=== PATIENT | male | born 1955 | race American Indian/Alaskan Native ===

== ENCOUNTER 2019-11-22 11:00 | Emergency (ER) | payer SELFPAY ==
--- NOTE | 2019-11-22 11:56 | Event Note ---
ED Screening Note Date of service: 11/22/19 Time: 11:56 ED Screening Note: 64 y/o male comes in for SOB and cough for 1 week. Patient denies any fever. This initial assessment/diagnostic orders/clinical plan/treatment(s) is/are subject to change based on patients health status, clinical progression and re- assessment by fellow clinical providers in the ED. Further treatment and workup at subsequent clinical providers discretion. Patient/guardian urged not to elope from the ED as their condition may be serious if not clinically assessed and managed. Initial orders include: Ox is 90-93 on RA ordered oxygen 2 liter and reevaluate, Rapid flu, cxr, cbc, cmp
--- NOTE | 2019-11-22 12:22 | XRay Report ---
CHEST 2 VIEWS INDICATION / CLINICAL INFORMATION: sob and cough. COMPARISON: None available. FINDINGS: SUPPORT DEVICES: None. HEART / MEDIASTINUM: Heart is upper normal size. Thoracic aorta is mildly ectatic and tortuous. LUNGS / PLEURA: Minimal streaky density at the posterior left lung base could represent atelectasis o r very early infiltrate. No pneumothorax. ADDITIONAL FINDINGS: No significant additional findings. IMPRESSION: 1. Streaky density at the posterior left lung base representing atelectasis or very early infiltrate. Signer Name: Vi Blackmon MD Signed: 11/22/2019 12:18 PM Workstation Name: [id number]
[2019-11-22 13:18] LABS: Basophils % (Auto) 0.7 % (0.0-1.8); Eosinophils # (Auto) 0.2 K/mm3 (0.0-0.4); Eosinophils % (Auto) 3.7 % (0.0-4.3); Hematocrit 42.4 % (35.5-45.6); Hemoglobin 14.6 gm/dl (11.8-15.2); Lymphocytes # (Auto) 0.9 K/mm3 (1.2-5.4); Lymphocytes % (Auto) 17.5 % (13.4-35.0); Mean Corpuscular HGB Conc 35 % (32-34); Mean Corpuscular Volume 96 fl (84-94); Monocytes # (Auto) 0.7 K/mm3 (0.0-0.8); Monocytes % (Auto) 13.5 % (0.0-7.3); Platelet Count 213 K/mm3 (140-440); Red Cell Distribution Width 12.2 % (13.2-15.2)
[2019-11-22 13:39] LABS: Alanine Aminotransferase 10 units/L (7-56); Albumin 3.9 g/dL (3.9-5); BUN/Creatinine Ratio 11; Blood Urea Nitrogen 11 mg/dL (9-20); Hemolysis Index 3
[2019-11-22] MEDS ORDERED: ALBUTEROL 2.5 MG/3 ML NEBU IH ONE (15:34)
[2019-11-22] MEDS ORDERED: dexAMETHasone 20 MG/5 ML VIAL IV ONE (15:34)
[2019-11-22] MEDS ORDERED: MAGNESIUM SULFATE 2 GM/50 ML BAG IV ONE (15:34)
--- NOTE | 2019-11-22 16:54 | Emergency Department Report ---
ED General Adult HPI - General Chief complaint: Upper Respiratory Infection Stated complaint: SOB Time Seen by Provider: 11/22/19 11:53 Source: patient Mode of arrival: Ambulatory Limitations: No Limitations - History of Present Illness Initial comments: Patient is a 64-year-old male who presents with shortness of breath and slight wheezing that started today. Patient states wheezing is moderate nothing makes it better nothing makes it worse. Patient denies having any chest pain he denies being around anyone is been sick he has no fever he says this occasionally occurs. Patient symptoms are moderate Severity scale (0 -10): 0 - Related Data Previous Rx's Medication Instructions Recorded Last Taken Type Albuterol INH(or & Nicu Only) 1 puff IH Q6H PRN #8.5 gram 11/22/19 Unknown Rx [ProAir HFA Inhaler] Azithromycin [Zithromax TAB] 500 mg PO QDAY #6 tablet 11/22/19 Unknown Rx predniSONE [Deltasone] 20 mg PO QDAY #10 tab 11/22/19 Unknown Rx Allergies Allergy/AdvReac Type Severity Reaction Status Date / Time No Known Allergies Allergy Unverified 11/22/19 11:02 ED Review of Systems ROS: Stated complaint: SOB Other details as noted in HPI Constitutional: denies: chills, fever Eyes: denies: eye pain, eye discharge, vision change ENT: denies: ear pain, throat pain Respiratory: cough, shortness of breath. denies: wheezing Cardiovascular: denies: chest pain, palpitations Endocrine: no symptoms reported Gastrointestinal: denies: abdominal pain, nausea, diarrhea Genitourinary: denies: urgency, dysuria Musculoskeletal: denies: back pain, joint swelling, arthralgia Skin: denies: rash, lesions Neurological: denies: headache, weakness, paresthesias Psychiatric: denies: anxiety, depression Hematological/Lymphatic: denies: easy bleeding, easy bruising ED Past Medical Hx - Past Medical History Previous Medical History?: No - Surgical History Past Surgical History?: No - Social History Smoking Status: Never Smoker Substance Use Type: None - Medications Home Medications: Home Medications Medication Instructions Recorded Confirmed Last Taken Type Albuterol INH(or & Nicu Only) 1 puff IH Q6H PRN #8.5 gram 11/22/19 Unknown Rx [ProAir HFA Inhaler] Azithromycin [Zithromax TAB] 500 mg PO QDAY #6 tablet 11/22/19 Unknown Rx predniSONE [Deltasone] 20 mg PO QDAY #10 tab 11/22/19 Unknown Rx ED Physical Exam - General Limitations: No Limitations General appearance: alert, in no apparent distress - Head Head exam: Present: atraumatic, normocephalic - Eye Eye exam: Present: normal appearance - ENT ENT exam: Present: mucous membranes moist - Neck Neck exam: Present: normal inspection - Respiratory Respiratory exam: Present: wheezes. Absent: respiratory distress - Cardiovascular Cardiovascular Exam: Present: regular rate, normal rhythm. Absent: systolic murmur, diastolic murmur, rubs, gallop - GI/Abdominal GI/Abdominal exam: Present: soft, normal bowel sounds - Rectal Rectal exam: Present: deferred - Extremities Exam Extremities exam: Present: normal inspection - Back Exam Back exam: Present: normal inspection - Neurological Exam Neurological exam: Present: alert, oriented X3 - Psychiatric Psychiatric exam: Present: normal affect, normal mood - Skin Skin exam: Present: warm, dry, intact, normal color. Absent: rash ED Course Vital Signs 11/22/19 11/22/19 11/22/19 11:10 11:50 15:08 Temperature 97.6 F Pulse Rate 83 78 Respiratory 18 16 19 Rate Blood Pressure 155/117 156/113 Blood Pressure [Left] O2 Sat by Pulse 93 91 Oximetry 11/22/19 11/22/19 11/22/19 15:10 15:12 15:16 Temperature Pulse Rate 81 Respiratory 24 13 Rate Blood Pressure 149/128 Blood Pressure 142/110 [Left] O2 Sat by Pulse 95 95 94 Oximetry 11/22/19 11/22/19 11/22/19 15:30 15:46 16:00 Temperature Pulse Rate 76 77 77 Respiratory 19 18 20 Rate Blood Pressure 149/128 149/128 149/128 Blood Pressure [Left] O2 Sat by Pulse 93 93 94 Oximetry 11/22/19 16:16 Temperature Pulse Rate 86 Respiratory 9 L Rate Blood Pressure 149/128 Blood Pressure [Left] O2 Sat by Pulse 99 Oximetry ED Medical Decision Making - Lab Data Result diagrams: 11/22/19 12:47 11/22/19 12:47 Lab Results 11/22/19 11/22/19 11/22/19 Range/Units 11:54 12:47 12:47 WBC 5.1 (4.5-11.0) K/mm3 RBC 4.40 (3.65-5.03) M/mm3 Hgb 14.6 (11.8-15.2) gm/dl Hct 42.4 (35.5-45.6) % MCV 96 H (84-94) fl MCH 33 H (28-32) pg MCHC 35 H (32-34) % RDW 12.2 L (13.2-15.2) % Plt Count 213 (140-440) K/mm3 Lymph % (Auto) 17.5 (13.4-35.0) % Guthrie % (Auto) 13.5 H (0.0-7.3) % Eos % (Auto) 3.7 (0.0-4.3) % Baso % (Auto) 0.7 (0.0-1.8) % Lymph # 0.9 L (1.2-5.4) K/mm3 Guthrie # 0.7 (0.0-0.8) K/mm3 Eos # 0.2 (0.0-0.4) K/mm3 Baso # 0.0 (0.0-0.1) K/mm3 Seg Neutrophils % 64.6 (40.0-70.0) % Seg Neutrophils # 3.3 (1.8-7.7) K/mm3 Sodium 137 (137-145) mmol/L Potassium 4.0 (3.6-5.0) mmol/L Chloride 98.6 (98-107) mmol/L Carbon Dioxide 24 (22-30) mmol/L Anion Gap 18 mmol/L BUN 11 (9-20) mg/dL Creatinine 1.0 (0.8-1.5) mg/dL Estimated GFR > 60 ml/min BUN/Creatinine Ratio 11 % Glucose 85 (75-100) mg/dL Calcium 9.0 (8.4-10.2) mg/dL Total Bilirubin 0.50 (0.1-1.2) mg/dL AST 18 (5-40) units/L ALT 10 (7-56) units/L Alkaline Phosphatase 69 (35-129) units/L Total Protein 8.4 H (6.3-8.2) g/dL Albumin 3.9 (3.9-5) g/dL Albumin/Globulin Ratio 0.9 % Influenza A (Rapid) Negative (Negative) Influenza B (Rapid) Negative (Negative) - Radiology Data Radiology results: report reviewed, image reviewed Chest x-ray: Shows lower left infiltrate may be atelectasis versus early pneumonia - Medical Decision Making CDx:PNA Ddx: Bronchitis, Influenza I will get cxr, breathing treatment, steroids and antibiotics Patient is feeling better I will discharge patient home with antibiotics and breathing treatment Critical care attestation.: If time is entered above; I have spent that time in minutes in the direct care of this critically ill patient, excluding procedure time. ED Disposition Clinical Impression: Bronchitis Disposition: DC-01 TO HOME OR SELFCARE Is pt being admited?: No Does the pt Need Aspirin: No Condition: Stable Instructions: Chronic Bronchitis (ED) Prescriptions: predniSONE [Deltasone] 20 mg PO QDAY #10 tab Albuterol INH(or & Nicu Only) [ProAir HFA Inhaler] 1 puff IH Q6H PRN #8.5 gram PRN Reason: Wheezing Azithromycin [Zithromax TAB] 500 mg PO QDAY #6 tablet Referrals: PRIMARY MD KWASI [Primary Care Provider] - 3-5 Days SUSHMA OSUNA MD [Staff Physician] - 3-5 Days
[2019-11-22 17:33] VITALS: BP 140/80
== END 2019-11-22 17:20 | disposition home or self-care (01) ==
LOC: ED 11:00
DX: J40 Bronchitis, not specified as acute or chronic (principal); Z79.899 Other long term (current) drug therapy
CPT/HCPCS: 36415; 71046; 80053; 85025; 87400; 94640; 96374; 99284; J1100; J3475

== ENCOUNTER 2019-12-03 14:48 | Emergency (ER) | payer SELFPAY ==
[2019-12-03 15:06] VITALS: BP 150/111
--- NOTE | 2019-12-03 15:20 | Emergency Department Report ---
Chief Complaint: Earache Stated Complaint: RT EAR CLOGGED Time Seen by Provider: 12/03/19 15:14 - HPI History of Present Illness: 64-year-old -[place] male presents to the emergency room for right ear feels like it is clogged x3 days. Patient denies any fever no chills denies any drainage from the ear denies being under water. Patient does admit to have a recent hospital visit where he had pneumonia. Patient reports he is just completed his antibiotics. Patient denies any shortness of breath or chest pain - Exam Vital Signs: Vital Signs 12/03/19 15:02 Temperature 97.8 F Pulse Rate 89 Respiratory 18 Rate Blood Pressure 150/111 O2 Sat by Pulse 95 Oximetry Physical Exam: Alert and oriented x3 no acute distress HEENT right ear has retraction of the tympanic membrane nonerythematous nonedematous MSE screening note: Focused history and physical exam performed. Due to findings the following was ordered: 64-year-old -[place] male presents to the emergency room for right ear feels like it is clogged x3 days. Patient denies any fever no chills denies any drainage from the ear denies being under water. Patient does admit to have a recent hospital visit where he had pneumonia. Patient reports he is just completed his antibiotics. Patient denies any shortness of breath or chest pain Recommend patient to take [id number] Zyrtec's or Claritin to dry up the fluid in the back of the tympanic membrane. Patient is to follow-up with a community provider. ED Disposition for MSE Disposition: MED SCREENING EXAM-LEFT Is pt being admited?: No Does the pt Need Aspirin: No Condition: Stable Additional Instructions: Recommend patient to take [id number] Zyrtec's or Claritin to dry up the fluid in the back of the tympanic membrane. Patient is to follow-up with a co [facility] provider. Referrals: LOUIS PEREZ MD [Staff Physician] - 3-5 Days CATE ARRIAGA MD [Staff Physician] - 3-5 Days
== END 2019-12-03 15:30 | disposition left against medical advice (07) ==
LOC: ED 14:48
DX: H92.01 Otalgia, right ear (principal)
CPT/HCPCS: 99282

== ENCOUNTER 2020-04-23 08:16 | Emergency (ER) | payer SELFPAY ==
[2020-04-23] MEDS ORDERED: CYCLOBENZAPRINE 10 MG TAB PO ONE (09:59)
[2020-04-23] MEDS ORDERED: KETOROLAC 60 MG/2 ML INJ IM ONE (09:59)
--- NOTE | 2020-04-23 10:04 | Emergency Department Report ---
ED Chest Pain HPI - General Chief Complaint: Chest Pain Stated Complaint: CHEST/BACK PAIN Time Seen by Provider: 04/23/20 09:40 Source: patient Mode of arrival: Ambulatory Limitations: No Limitations - History of Present Illness Initial Comments: 65-year-old male presents to the ER today complaint of chest pain. Patient states that he has been having diffuse anterior chest pain since yesterday. He states that the pain has been intermittent and is worse with movement. He also reports associated back pain, he states he has been having pain to his entire back which is also worse with movement. Patient states that he believes his chest pain in his back pain is coming from muscle spasms. He states he does do lots of lifting at work but denies any trauma. Patient states he was seen here a few days ago for similar pain. Reviewed visit from 04/13/2020 --patient had labs with 3- troponins, as well as a chest x-ray which showed a tortuous aorta but otherwise negative, and he also had a unremarkable CTA of the chest and EKG at the time showed sinus rhythm, no acute ischemic changes or STEMI. Patient states that he tried Aleve but that did not seem to help his pain. He denied any associated shortness of breath, nausea, vomiting, abdominal pain or diaphoresis with the chest pain he has been having since yesterday. He does admit that he has had a productive cough for the past 2 weeks. He denies any URI symptoms, fever or chills with this cough. Denies any ill contacts or recent travel. He does admit to history of hypertension, but he has been noncompliant with his medications and states he has been try to control his BP himself. He denies any history of coronary artery disease, or family history of coronary artery disease, diabetes, hyperlipidemia or tobacco use. MD Complaint: chest pain -: Gradual (yesterday) Severity scale (0 -10): 10 - Related Data Previous Rx's Medication Instructions Recorded Last Taken Type Amlodipine Besylate [Norvasc] 5 mg PO DAILY #30 tablet 04/13/20 Unknown Rx SUMAtriptan SUCCINATE [Imitrex] 50 mg PO BID PRN #30 tab 04/13/20 Unknown Rx hydroCHLOROthiazide [Hctz] 12.5 mg PO QDAY #30 capsule 04/13/20 Unknown Rx Cyclobenzaprine [Flexeril] 10 mg PO TID PRN #30 tablet 04/23/20 Unknown Rx Ketorolac [Toradol] 10 mg PO Q6H PRN #20 tablet 04/23/20 Unknown Rx Allergies Allergy/AdvReac Type Severity Reaction Status Date / Time No Known Allergies Allergy Verified 12/03/19 15:02 Heart Score - HEART Score History: Slightly suspicious EKG: Normal Age: 45-65 Risk factors: 1-2 risk factors (HTN) Troponin: < normal limit HEART Score: 2 - Critical Actions Critical Actions: 0-3 pts:0.9-1.7%risk of adverse cardiac event.Candidate for discharge ED Review of Systems ROS: Stated complaint: CHEST/BACK PAIN Other details as noted in HPI Comment: All other systems reviewed and negative Constitutional: denies: chills, fever ENT: denies: ear pain, throat pain Respiratory: cough. denies: orthopnea, shortness of breath, SOB with exertion, SOB at rest, wheezing Cardiovascular: chest pain. denies: palpitations, dyspnea on exertion, orthopnea, edema, syncope Gastrointestinal: denies: abdominal pain, nausea, vomiting Genitourinary: denies: urgency, dysuria Musculoskeletal: back pain Neurological: denies: headache, weakness, paresthesias Psychiatric: denies: anxiety, depression Hematological/Lymphatic: denies: easy bleeding, easy bruising ED Past Medical Hx - Past Medical History Previous Medical History?: Yes Hx Hypertension: Yes Additional medical history: PNEUMONIA - Surgical History Past Surgical History?: No - Social History Smoking Status: Never Smoker Substance Use Type: None - Medications Home Medications: Home Medications Medication Instructions Recorded Confirmed Last Taken Type Amlodipine Besylate [Norvasc] 5 mg PO DAILY #30 tablet 04/13/20 Unknown Rx SUMAtriptan SUCCINATE [Imitrex] 50 mg PO BID PRN #30 tab 04/13/20 Unknown Rx hydroCHLOROthiazide [Hctz] 12.5 mg PO QDAY #30 capsule 04/13/20 Unknown Rx Cyclobenzaprine [Flexeril] 10 mg PO TID PRN #30 tablet 04/23/20 Unknown Rx Ketorolac [Toradol] 10 mg PO Q6H PRN #20 tablet 04/23/20 Unknown Rx ED Physical Exam - General Limitations: No Limitations General appearance: alert, in no apparent distress - Head Head exam: Present: atraumatic, normocephalic, normal inspection - Eye Eye exam: Present: normal appearance - ENT ENT exam: Present: normal exam - Neck Neck exam: Present: normal inspection - Respiratory Respiratory exam: Present: normal lung sounds bilaterally, chest wall tenderness (Left lower parasternal chest). Absent: respiratory distress - Cardiovascular Cardiovascular Exam: Present: regular rate, normal rhythm, normal heart sounds - GI/Abdominal GI/Abdominal exam: Present: soft. Absent: distended, tenderness - Extremities Exam Extremities exam: Present: normal inspection. Absent: pedal edema, calf tenderness - Back Exam Back exam: Present: normal inspection, full ROM, paraspinal tenderness (upper interscapular areas). Absent: vertebral tenderness, rash noted - Neurological Exam Neurological exam: Present: alert, oriented X3, CN II-XII intact - Psychiatric Psychiatric exam: Present: normal affect, normal mood - Skin Skin exam: Present: intact ED Course Vital Signs 04/23/20 04/23/20 04/23/20 08:18 10:19 10:49 Temperature 98.3 F Pulse Rate 80 Respiratory 18 18 16 Rate Blood Pressure 152/97 [Left] O2 Sat by Pulse 97 Oximetry KARL score - Karl Score Age > 65: (0) No Aspirin use within the Past 7 Days: (0) No 3 or more CAD Risk Factors: (0) No 2 or more Angina events in past 24 hrs: (0) No Known CAD with more than 50% Stenosis: (0) No Elevated Cardiac Markers: (0) No ST Deviation Greater than 0.5mm: (0) No KARL Score: 0 ED Medical Decision Making - EKG Data EKG shows normal: sinus rhythm Rate: normal - EKG Data When compared to previous EKG there are: no significant change Interpretation: no acute changes, normal EKG - Radiology Data Radiology results: report reviewed - Medical Decision Making Pt presented to ED c/o diffuse anterior chest pain and diffuse back pain. He states it was same pain he was seen her for 11 days ago but it flared up again yesterday. He thinks it could be related to heavy lifting he is doing at work because its worse when he moves. He denies any SOB, n/v, diaphoresis or abd pain. on 04/13/20 he had complete cardiac w/u including 3 neg trop and neg CTA. EKG today show no changes from 11 days ago and trop today again negative. CXR show spinal djd but otherwise nothing acute. Pt does have reproducible pain on examination of his chest and upper back. I do not suspect ACS/PE/AAA/dissection or other emergent cardiopulmonary process at this time. No indication for admission, further testing or emergent consult needed at this time. PAtient currently resting comfortable. He is not in any acute distress. He is well appearing and not toxic. His VS are stable. Discussed todays w/u with patient. Discussed suspected dx and tx plan with patient. Recommend that he f/u with PCP next week But to return if worse or if anything changes. Pt expressed understanding of instructions and agrees with plan. Critical care attestation.: If time is entered above; I have spent that time in minutes in the direct care of this critically ill patient, excluding procedure time. ED Disposition Clinical Impression: Chest wall pain, Thoracic back pain, Degenerative joint disease of spine Disposition: TO HOME OR SELFCARE Is pt being admited?: No Does the pt Need Aspirin: No Condition: Stable Instructions: Costochondritis (ED), Back Pain (ED), Osteoarthritis (ED) Additional Instructions: Take medications as prescribed. I recommend close f/u with PCP for referral to electronic masking system operator. Return to ED if worse. Prescriptions: Cyclobenzaprine [Flexeril] 10 mg PO TID PRN #30 tablet PRN Reason: Muscle Spasm Ketorolac [Toradol] 10 mg PO Q6H PRN #20 tablet PRN Reason: Pain Referrals: LOUIS PEREZ MD [Staff Physician] - 3-5 Days Time of Disposition: 12:32
--- NOTE | 2020-04-23 10:27 | XRay Report ---
CHEST 2 VIEWS INDICATION: chest pain. COMPARISON: 1120 FINDINGS: Support devices: None. Heart: Heart size is within normal limits. The aorta is moderately ectatic but well defined. Lungs/pleura: No acute air space or interstitial disease. No pneumothorax. Additional findings: Mild degenerative changes in the spine but no evidence for acute fracture. IMPRESSION: No acute findings. Signer Name: Warren Mayes Jr, MD Signed: 04/23/2020 10:23 AM Workstation Name: [id number]
[2020-04-23 12:54] VITALS: BP 158/110
== END 2020-04-23 12:55 | disposition home or self-care (01) ==
LOC: ED 08:16
DX: M47.9 Spondylosis, unspecified (principal); M54.6 Pain in thoracic spine; R07.89 Other chest pain; I10 Essential (primary) hypertension; Z79.899 Other long term (current) drug therapy
CPT/HCPCS: 36415; 71046; 84484; 93005; 96372; 99284; J1885